=== PATIENT | female | born 1990 | race Caucasian/White ===

== ENCOUNTER → 2018-05-14 | Outpatient (CLI) | payer MEDICAID ==
[2016-03-11 15:52] VITALS: BMI 32.1
[~2018-05-14] MED LIST: DIPH0.5D12 IM; DOCU240C67 PO; FLU60SYR36 IM; IBUP800T37 PO; Lanolin TP; PREN-127 PO; [UNRECOGNIZED DRUG - CODE] PO; [UNRECOGNIZED DRUG - OTHER] PO
== END ==
LOC: LAB 09:26
PROVIDERS: ATTEND Student in an Organized Health Care Education/Training Program
DX: Z34.90 Encounter for supervision of normal pregnancy, unspecified, unspecified trimester (principal)
CPT/HCPCS: 36415; 82950; 85027

== ENCOUNTER → 2018-05-22 | Outpatient (CLI) | payer MEDICAID ==
[2016-03-11 15:52] VITALS: BMI 32.1
== END ==
LOC: LAB 07:43
PROVIDERS: ATTEND Student in an Organized Health Care Education/Training Program
DX: O99.810 Abnormal glucose complicating pregnancy (principal)
CPT/HCPCS: 36415; 82951; 82952

== ENCOUNTER → 2018-06-21 | Outpatient (CLI) | payer MEDICAID ==
[2016-03-11 15:52] VITALS: BMI 32.1
--- NOTE | 2018-06-21 12:46 | RADIOLOGY IMAGING REPORT ---
FACILITY: [facility] [place] PATIENT NAME: Samantha Stearns : 1990 MR: [id number] V: [id number] EXAM DATE: ORDERING PHYSICIAN: RAE JERNIGAN TECHNOLOGIST: Location: [facility] Patient: Samantha Stearns : 1990 Visit/Account:[id number] Date of Sevice: 06/21/2018 Limited OB ultrasound Indication: Size and dates Comparison: None available FINDINGS: Intrauterine gestations: one presentation: Variable heart rate: 139 bpm Amniotic fluid index: 15.1 cm Largest amniotic fluid pocket 5.8 cm Placenta: Fundal without previa Uterus: gravid, otherwise normal Maternal adnexa: Unremarkable Cervix: long and closed Gestational Parameters: BPD: 9.1 cm 36 weeks six days HC: 32.1 cm 36 weeks two days AC: 29.7 cm 33 weeks five days FL: 6.6 cm 33 weeks six days Average ultrasound age (AUA): 35 weeks two days NANETTE: 07/24/2018 Estimated weight (EFW): 2384 g EFW: 51st percentile Limited anatomic survey shows the 4 chamber heart, stomach, and kidneys to be unremarkable. IMPRESSION: 1. Single live intrauterine gestation with dates and measurements as above. Report Dictated By: Doc Andujar at 06/21/2018 12:39 PM Report E-Signed By: Doc Andujar at 06/21/2018 12:41 PM WSN:[id number]
== END ==
LOC: RAD 09:29
PROVIDERS: ATTEND Student in an Organized Health Care Education/Training Program
DX: Z34.92 Encounter for supervision of normal pregnancy, unspecified, second trimester (principal)

== ENCOUNTER → 2018-07-05 | Outpatient (CLI) | payer MEDICAID ==
[2016-03-11 15:52] VITALS: BMI 32.1
== END ==
LOC: LAB 08:46
PROVIDERS: ATTEND Advanced Practice Midwife
DX: Z34.93 Encounter for supervision of normal pregnancy, unspecified, third trimester (principal)
CPT/HCPCS: 87081

== ENCOUNTER → 2018-08-02 | Outpatient (CLI) | payer MEDICAID ==
[2016-03-11 15:52] VITALS: BMI 32.1
== END ==
LOC: LAB 10:23
PROVIDERS: ATTEND Obstetrics & Gynecology
DX: R10.11 Right upper quadrant pain (principal)
CPT/HCPCS: 82040; 82247; 82310; 82374; 82435; 82565; 82570; 82947; 83615; 84075; 84132; 84155; 84156; 84295; 84450; 84460; 84520; 84550; 85027

== ENCOUNTER 2018-08-10 19:01 | Inpatient (IN) | payer MEDICAID ==
[~2018-08-10] VITALS: Ht 170.2 cm; Wt 98.0 kg
[2018-08-10] MEDS ORDERED: OXYTOCIN 30 UNIT/D5LR 500 ML 500 ML IV PRN (19:12)
[2018-08-10] MEDS ORDERED: LR(*) 1000 ML BAG 1,000 ML IV PRN (19:12)
[2018-08-10] MEDS ORDERED: FAMOTIDINE(*) 20MG/50ML PREMIX 50 ML IVPB PRN (19:12)
[2018-08-10] MEDS ORDERED: fentaNYL CITR 100 MCG/2 ML AMP IVP PRN (19:15)
[2018-08-10] MEDS ORDERED: cefOXitin/DEX(*) 2GM/50ML PREM 50 ML IVPB PRN (19:15)
[2018-08-10] MEDS ORDERED: METOCLOPRAMIDE 10 MG/2 ML SDV IVP PRN (19:15)
[2018-08-10 19:23] VITALS: BP 133/77; Ht 170.2 cm; Wt 98.0 kg
[2018-08-10 20:18] LABS: PLATELET COUNT, AUTOMATED 185 K/uL (150-450)
[2018-08-10] MEDS ORDERED: NS(*) 0.9% 500 ML BAG 0 ML ONE (20:18)
--- NOTE | 2018-08-10 21:26 | History & Physical ---
History of Present Illness Age of Patient: 28 : 2 Para or TPAL: 1 EDC per LMP: Aug 02, 2018 EDC per U/S: Aug 02, 2018 Estimated Gestational Age: 41.1 Chief Complaint Pt is at 27yo @ 41 08/09 by LMP and first trimester US with an NANETTE of 08/02/19 admitted tonight for IOL for postdates with a plan for a cook catheter placement. She has been having occasional contractions, but nothing that has been to consistent. She feel like she have lost her mucus plug earlier today too. +FM, no LOF, some light spotting and inconsistent contractions. She denies GUZMAN, vision changes, RUQ or epigastric pain. History Patient's Blood Type: B Positive Rubella Status: Immune Group B Strep Screen: Negative Obstetrical History: Uncomplicated delivery of of male infant 71b 5oz Allergies: Coded Allergies: No Known Allergies (Verified Allergy, Unknown, 02/21/16) Family History: FH: hypertension FATHER FH: hypothyroidism MOTHER FH: lung cancer GRANDPARENT FH: thyroid condition Med Rec Home Meds Reported Medications Vits W-Ca,Fe,Fa(<1MG) ( VITAMINS) 1 Each Tablet, 1 EACH PO DAILY, TAB 04/28/18 Review of Systems Constitutional: No Fever Eyes: No Vision Change, No Loss of Vision Cardiovascular: No Chest Pain Respiratory: No Shortness of Breath Gastrointestinal: No Nausea, No Vomiting; Abdominal Pain (3/10 contraction pain) Genitourinary: No Dysuria Exam General Exam General Apperance: Alert/Awake/No Acute Distress Neuro: No Gross deficits Eyes: Normal Extraocular Movement & Vison, PERRLA ENT: Normal Cardiovascular: Regular Rate and Rhythm Respiratory: No Respiratory Distress, Clear to Auscultation Abdomen: Gravid - Non-Tender, RUQ Non-Tender : Normal Musculoskeletal: No Weakness/Pain Extremities: No Cyanosis,Clubbing or Edema Integumentary: Skin Intact without Lesions or Rash Psychological: Alert & Oriented X3, Appropriate Mood & Affect Vaginal Discharge/Fluid?: Bloody Show Cervical Dialation: 1.5 Cervical Effacement (%): 70 Cervical Consistency: Soft Cervical Position: Posterior Station: -2 Presentation: Vertex Uterine Contractions(Q min): 8 Uterine Contraction Strength: Moderate UC Resting Tone: Soft Fetus Feeling Movement?: Yes Estimated Weight(grams): 3500 Heart Tones: 125 Heart Tone Variabilty: Moderate FHT Accelerations: 15X15 FHT Decelerations: None FHT Category: I Medical Decision Making Data Points Result Diagram: 08/10/181999 Assessment and Plan TALENT CONSULTANT Plan: Routine Labor/Induct Care Problems: (1) Encounter for induction of labor Onset Date: ~ 08/10/2018 Status: Acute Assessment & Plan: CHARLES is a 28yo @ 41 08/09 by LMP and first trimester US with an NANETTE of 08/02/18 here today for induction of labor for PD . 1.Labor state: IOL for PD. Early labor, attempted to place cook cath and was unsuccessful. Plan for walking for 1 hour and then Cervidil if no cervical change. 2. well-being: Category I FHT: intermittent monitoring 3.Maternal well-being: VSS, normotensive, afebrile, membranes intact, BBOW 4.PNL: GBS neg, Type/Rh A+, rubella immune 5.Pain Management: plans for an unmedicated , comfortable now, tolerating contractions 6.Feed: Breast 7.PPBCM: not asked 8. c/b: * PD Re-evaluate in [address] Cervidil if no cervical change. IRENE MALONEY CNM Aug 10, 2018 21:26
[2018-08-10] MEDS ORDERED: DINOPROSTONE 10 MG INSERT PV ONE (22:40)
--- NOTE | 2018-08-10 23:29 | Labor Progress Note ---
Labor Subjective Progress Notes Subjective Pt is starting to feel more contraction discomfort. She is thinking that she wants to try the Cervidil verus the Cytotec because we can remove if needed. at bedside and very supportive. Feeling Movement?: Yes Vaginal Discharge/Fluid: Bloody Show Labor Pain: Moderate Neurological: No Headache Eyes: No Visual Disturbances Labor Objective Vaginal Discharge/Fluid?: Bloody Show Cervical Dialation: 1.5 Cervical Effacement (%): 70 Cervical Consistency: Soft Cervical Position: Mid Station: -1 Presentation: Vertex Uterine Contractions(Q min): 7 Uterine Contraction Strength: Moderate UC Resting Tone: Soft Fetus Estimated Weight(grams): 3500 Heart Tones: 125 Heart Tone Variabilty: Absent, Moderate FHT Accelerations: 15X15 FHT Decelerations: None FHT Category: I General Exam General Appearance: Alert/Awake/No Acute Distress Respiratory: No Respiratory Distress Abdomen: RUQ Non-Tender Psychological: Alert & Oriented X3, Appropriate Mood & Affect Other Result Diagram: 08/10/181999 Assessment and Plan SANITOR Plan: Routine Labor/Induct Care Problems: (1) Encounter for induction of labor Onset Date: ~ 08/10/2018 Status: Acute Assessment & Plan: CHARLES is a 28yo @ 41 08/09 by LMP and first trimester US with an NANETTE of 08/02/18 here today for induction of labor for PD . 1.Labor state: IOL for PD. Early labor, attempted to place cook cath and was unsuccessful. Cervidil placed at 2300, will need to be removed at 1100 on 08/11 or sooner if active labor or intolerance 2. well-being: Category I FHT: continuous monitoring X 2 hours post Cervidil and then intermittent monitoring 3.Maternal well-being: VSS, normotensive, afebrile, membranes intact. Encourage rest and hydration 4.PNL: GBS neg, Type/Rh A+, rubella immune 5.Pain Management: plans for an unmedicated , tolerating contractions, but not able to talk through them now. Able to rest between contractions 6.Feed: Breast 7.PPBCM: not asked 8. c/b: * PD Anticipate progression to active labor. Re-evaluate in 2-3 hours or PRN IRENE MALONEY CNM Aug 10, 2018 23:28
--- NOTE | 2018-08-11 03:50 | Labor Progress Note ---
Labor Subjective Progress Notes Subjective Pt is feeling much more uncomfortable now. Sitting on the ball with body over the bed and swaying and moaning during contractions. is very supportive counting during the contractions. Able to rest and talk between contractions. Feeling vaginal pressure with pain mostly felt in lower abdomen. Feeling Movement?: Yes Vaginal Discharge/Fluid: Bloody Show, Small Amount Labor Pain: Moderate Neurological: No Headache Eyes: No Visual Disturbances Labor Objective Vital Signs Vital Signs Date Time Temp Pulse Resp B/P (MAP) Pulse Ox O2 Delivery O2 Flow Rate FiO2 08/10/18 19:23 98.6 80 16 133/77 (95) 96 Room Air Vaginal Discharge/Fluid?: Bloody Show, Small Amount Cervical Position: Posterior Station: -1 Presentation: Vertex Uterine Contraction Strength: Moderate UC Resting Tone: Soft Fetus Estimated Weight(grams): 3500 Heart Tones: 140 FHT Accelerations: Present (audible with IA) FHT Decelerations: None (no audible decelerations) General Exam General Appearance: Alert/Awake/No Acute Distress ENT: Normal Psychological: Alert & Oriented X3, Appropriate Mood & Affect Other Result Diagram: 08/10/181999 Assessment and Plan Hospital Day: 2 ROOF FITTER Plan: Routine Labor/Induct Care Problems: (1) Encounter for induction of labor Onset Date: ~ 08/10/2018 Status: Acute Assessment & Plan: CHARLES is a 28yo @ 41 2/7 by LMP and first trimester US with an NANETTE of 08/02/18 admitted 08/10 @ 1900 for induction of labor for PD . 1. Labor state: IOL for PD. Active labor. Cervidil removed at 0330 for signs of active labor and adequate contraction pattern. Will monitor contraction pattern and consider AROM if needed to progress labor, R/B/A reviewed with pt and 2. well-being: Intermittent auscultation every 30 minutes for active labor for 1 minute before and after a contraction 3. Maternal well-being: VSS, normotensive, afebrile, membranes intact. Encourage rest and hydration 4. PNL: GBS neg, Type/Rh A+, rubella immune 5. Pain Management: plans for an unmedicated , tolerating contractions on the birthing ball. Able to rest and smile between contractions 6. Feed: Breast 7. PPBCM: not asked 8. c/b: * PD Anticipate and Re-evaluate in 2-3 hours or PRN IRENE MALONEY CNM Aug 11, 2018 03:50
--- NOTE | 2018-08-11 06:34 | Labor Progress Note ---
Labor Subjective Progress Notes Subjective Pt reports feeling more lower back pain with contractions but also in her lower abdomen. Moaning, swaying, and is massaging her lower back during contractions. +FM, no LOF or bloody show. Would prefer at this time to not be rechecked because it is so painful for her. Has been able to sleep between contractions. Labor Pain: Moderate Neurological: No Headache Eyes: No Visual Disturbances Labor Objective Vital Signs Vital Signs Date Time Temp Pulse Resp B/P (MAP) Pulse Ox O2 Delivery O2 Flow Rate FiO2 08/10/18 19:23 98.6 80 16 133/77 (95) 96 Room Air Uterine Contraction Strength: Strong UC Resting Tone: Soft Fetus Estimated Weight(grams): 3500 Heart Tones: 135 General Exam General Appearance: Alert/Awake/No Acute Distress (sleepy) Psychological: Alert & Oriented X3, Appropriate Mood & Affect Other Result Diagram: 08/10/181999 Assessment and Plan Hospital Day: 2 SQL SSIS DEVELOPER Plan: Routine Labor Care Problems: (1) Encounter for induction of labor Onset Date: ~ 08/10/2018 Status: Acute Assessment & Plan: CHARLES is a 28yo @ 41 2/7 by LMP and first trimester US with an NANETTE of 08/02/18 admitted 08/10 @ 1900 for induction of labor for PD . 1. Labor state: IOL for PD. Active labor. Cervidil removed at 0330 for signs of active labor and adequate contraction pattern. Will recheck pt cervix when she is ready, but for now good visual signs of labor progression. 2. well-being: Intermittent auscultation every 30 minutes for active labor for 1 minute before and after a contraction 3. Maternal well-being: VSS, normotensive, afebrile, membranes intact. Encourage rest and hydration. Received IVF bolus earlier. Encourage frequent use of bathroom 4. PNL: GBS neg, Type/Rh A+, rubella immune 5. Pain Management: coping well; using hydrotherapy, birthing ball, hands and knees with lower back massage, controlled breathing, sleeping between contractions, plans for an unmedicated 6. Feed: Breast 7. PPBCM: not asked 8. c/b: * PD Anticipate and Re-evaluate in 2-3 hours or PRN IRENE MALONEY CNM Aug 11, 2018 06:34
--- NOTE | 2018-08-11 12:09 | OB Delivery Note ---
Delivery Note Vaginal Delivery Type: Spont. Vaginal Delivery Delivery Date: Aug 11, 2018 Delivery Time: 10:41 Estimated Gestational Age(wks): 42 2/7 Delivery Anesthesia: Other (un medicated) Infant Sex: Male [place] Apgars: 1 Minute, 5 Minute Repair Needed: Laceration, Perineal, 2nd Degree Estimated Blood Loss: 150 Notes: KJ is 28yo G2 now P2 @ 41 2/7 by LMP and first trimester US with an NANETTE of 08/02/18 who was admitted to the family care unit at 1900 on 08/10 for IOL for PD. Pt was admitted to the family care unit @1900 not in labor. Cervical exam on admission was 1.5/70/-2. She had SROM on 08/11/17 at 1023 with large amount of clear fluid right before completely dilated and pushing began. Pt was GBS negative. FHR CAT 1 primarily throughout first stage. Pt utilized non- pharmacological methods for pain management. Cervidil was used as a ripening agent and no Pitocin augmentation was needed. Pt was completely dilated on 08/11/18 at 1034 and pt began pushing at that time with good maternal effort. At 1041 pt had a NSVB of live male . The head delivered spontaneously in the OA position and restituted BRIANDA with no nuchal co rd. The anterior shoulder was delivered a traumatically and the posterior shoulder followed. Body delivered easily. Face was wiped and then placed on the maternal abdomen. The infant was dried and stimulated and noted to have a spontaneous cry and spontaneous movement of all 4 extremities. Cord was clamped X 2 by CNM after pulsations ceased and cut by patient's spouse. Mother was in SF position. At 1054 the placenta and membranes delivered spontaneous and intact with a 3 vessel cord after gentle downward traction and maternal push. 30 units of Pitocin was placed in 500cc IV to firm the uterus and started immediately after placenta delivery. Upon inspection of the perineum a second degree midline perineal laceration was noted and repaired using 3.0 Vicryl under 1% lidocaine. Hemostasis observed. EBL 150, fundus firm with minimal bleeding. Mom and baby were left in stable condition. initiated with great success. "I personally examined the patient and there are no unintended foreign objects in the vagina. Amisha Fisher CNM was present throughout the entire delivery. Nautical Instrument Mechanic in Attendence: AMISHA Escamilla CNM Aug 11, 2018 12:09
--- NOTE | 2018-08-11 12:11 | Labor Progress Note ---
Labor Subjective Progress Notes Subjective Feeling a lot of rectal pressure and wanting to push so desires at cervical check. Feeling Movement?: Yes Vaginal Discharge/Fluid: Bloody Show, Moderate Amount Labor Pain: Moderate Neurological: No Headache Eyes: No Visual Disturbances Labor Objective Vital Signs Vital Signs Date Time Temp Pulse Resp B/P (MAP) Pulse Ox O2 Delivery O2 Flow Rate FiO2 08/10/18 19:23 98.6 80 16 133/77 (95) 96 Room Air Vaginal Discharge/Fluid?: Bloody Show Cervical Dialation: 8 Cervical Effacement (%): 100 Cervical Consistency: Soft Station: 0 Presentation: Vertex Uterine Contractions(Q min): 2 Uterine Contraction Strength: Strong UC Resting Tone: Soft Fetus Estimated Weight(grams): 3500 Heart Tones: 140 (Intemittent monitoring, no decelerations,+ accelerations, moderate variability) Heart Tone Variabilty: Moderate FHT Accelerations: 15X15 FHT Decelerations: None FHT Category: I General Exam General Appearance: Alert/Awake/No Acute Distress Cardiovascular: Normal Rhythm & Peripheral Pulses Respiratory: No Respiratory Distress Abdomen: Gravid - Non-Tender, RUQ Non-Tender Other Result Diagram: 08/10/181999 Assessment and Plan AUCTIONEER TOBACCO Assessment: Stable AUCTIONEER TOBACCO Plan: Routine Labor Care Problems: (1) Encounter for induction of labor Onset Date: ~ 08/10/2018 Status: Acute Assessment & Plan: CHARLES is a 28yo @ 41 2/7 by LMP and first trimester US with an NANETTE of 08/02/18 admitted 08/10 @ 1900 for induction of labor for PD . 1. Labor state: IOL for PD. Active labor, progressing toward transition. Adequate contraction pattern with good cervical change in 2 hours 2. well-being: Continuous monitoring per pt request, CAT 1 FHT 3. Maternal well-being: VSS, normotensive, afebrile, membranes intact. Encourage frequent use of bathroom and hydration. 4. PNL: GBS neg, Type/Rh A+, rubella immune 5. Pain Management: coping well; birthing ball on hands and knees with lower back massage, controlled breathing and moaning 6. Feed: Breast 7. PPBCM: not asked 8. c/b: * PD Anticipate and Re-evaluate in 2-3 hours or PRN IRENE MALONEY M CN Aug 11, 2018 09:43
[2018-08-11] MEDS ORDERED: GLYCERIN/WITCH HAZEL LEAF 1 PK TP PRN (12:15)
[2018-08-11] MEDS ORDERED: APAP/HYDROCODONE 325/5 TAB PO PRN (12:15)
[2018-08-11] MEDS ORDERED: LANOLIN OINT 7 GM TUBE TP PRN (12:15)
[2018-08-11] MEDS ORDERED: ACETAMINOPHEN 325 MG TAB PO PRN (12:15)
[2018-08-11] MEDS ORDERED: HYDROCORTISONE 2.5% CR 30GM TB PR PRN (12:15)
[2018-08-11] MEDS ORDERED: MAGNESIUM HYDROXIDE* 30ML UDCP PO PRN (12:15)
[2018-08-11] MEDS ORDERED: BENZOCAINE 20% 60 ML BTL TP PRN (12:15)
[2018-08-11] MEDS: LIDOCAINE 1% LOCAL 300 MG/30ML INJ PRN ×2 (13:00→13:25)
[2018-08-11] MEDS ORDERED: IBUPROFEN 800 MG TAB PO SCH (14:00)
[2018-08-11 17:00] VITALS: BP 125/70
[2018-08-11 19:45] VITALS: BP 113/71
[2018-08-11] MEDS: IBUPROFEN 800 MG TAB PO SCH (21:37)
[2018-08-11] MEDS: DOCUSATE CALCIUM 240 MG CAP PO SCH (21:37)
[2018-08-11 23:20] VITALS: BP 124/76
[2018-08-12 03:00] VITALS: BP 130/80
[2018-08-12] MEDS: IBUPROFEN 800 MG TAB PO SCH ×2 (06:10→13:13)
[2018-08-12 08:30] VITALS: BP 123/74
[2018-08-12] MEDS: DOCUSATE CALCIUM 240 MG CAP PO SCH (09:25)
--- NOTE | 2018-08-12 11:52 | OB/GYN Discharge Summary ---
Discharge Summary Reason for Hosp/Final Diag: (1) Encounter for induction of labor Onset Date: ~ 08/10/2018 Status: Resolved (2) (normal spontaneous vaginal delivery) Status: Resolved (3) Second degree perineal laceration during delivery, delivered Onset Date: ~ 08/11/2018 Status: Acute Hospital Course & Plan: Return in 2 weeks for evaluation. Nothing in the vagina for 6 weeks. Monitor for s/s of infection or dehiscence. (4) care and examination Onset Date: ~ 08/11/2018 Status: Acute Hospital Course & Plan: Admission Diagnoses: IUP at 41w1d, Labor state: Not in labor, admitted for IOL for PD Reason for Hospitalization: IOL for PD, normal vaginal delivery of male infant with a second degree laceration Hospital Course: KJ is 28yo G2 now P2 @ 41 2/7 by LMP and first trimester US with an NANETTE of 08/02/18 who was admitted to the family care unit at 1900 on 08/10 for IOL for PD. Pt was admitted to the family care unit @1900 not in labor. Cervical exam on admission was 1.5/70/-2. She had SROM on 08/11/17 at 1023 with large amount of clear fluid right before completely dilated and pushing began. Pt was GBS negative. FHR CAT 1 primarily throughout first stage. Pt utilized non- pharmacological methods for pain management. Cervidil was used as a ripening agent and no Pitocin augmentation was needed. Delivery Information: Uncomplicated of male on 08/11/18 at 10:41. Apgars 8,9. Second degree laceration sustained and repaired without difficulty. Estimated blood loss: 150cc Episiotomy: none Laceration: Second degree repaired Pain Management: non-pharmacological Subjective: Pt is feeling really great today. is going well and is not having an perineal pain. She does have some abdominal pain when nursing, but understands that this is normal and a good thing. She is taking Motrin with good effect and will plan to continue this for a few days at home. Her bleeding is minimal to none. She has not had a BM, but is passing gas. Denies UTI and pre E symptoms. She feels very satisfied with her experience. Exam: A+Ox3, happy and smiling Vitals: Normotensive and afebrile Breasts: Soft and non tender, nipples everted and +colostrum Abdomen: Soft and non-tender, F@ the U Perineum: no swelling, healing well with good approximation, no redness Lochia: minimal Extremities: BLE non tender, -homans sign, no redness Disposition: Patient discharged to home in medically stable condition. No Known Allergies Follow-up Appointment: See me in 2 weeks for a mood and laceration check Activity/Restrictions: Pelvic rest; nothing in vagina for six weeks. Return Precautions: Patient instructed to call the clinic or return to hospital for fever > 101 degree F; chills; severe nausea or vomiting; inability to tolerate anything by mouth for > 24 hours; increasingly severe abdominal/pelvic pain; foul smelling vaginal discharge; vaginal bleeding > 1 pad per hour for > 2 hours; separation, drainage, or redness of incision or laceration site. Reviewed depression and pre-eclampsia s/s and when to seek care. Lates Vital Signs Vital Signs Date Time Temp Pulse Resp B/P (MAP) Pulse Ox O2 Delivery O2 Flow Rate FiO2 08/12/18 03:00 97.7 84 18 130/80 (97) 96 08/10/18 19:23 Room Air Weight (Pounds): 216 Result Diagram: 08/10/181999 Condition: Improved Discharge: Home Home Meds Reported Medications Vits W-Ca,Fe,Fa(<1MG) ( VITAMINS) 1 Each Tablet, 1 EACH PO DAILY, TAB 04/28/18 Follow up Referrals: FARM EQUIPMENT SERVICE TECHNICIAN - In Two Weeks @ [facility] with IRENE MALONEY CNM Discharge Diet: As Tolerates, Resume Prior Admit Diet, Increase Fluid Intake Discharge Activity: As Tolerates, Pelvic Rest Special Instructions: Watch for signs and symptoms of infection IRENE MALONEY CNM Aug 12, 2018 09:03
== END 2018-08-12 14:00 | disposition home or self-care (01) | DRG 807 ==
LOC: OB 19:01
PROVIDERS: ADMIT Student in an Organized Health Care Education/Training Program; ATTEND Student in an Organized Health Care Education/Training Program
PROC: 3E0P7VZ Introduction of Hormone into Female Reproductive, Via Natural or Artificial Opening (ICD-10-PCS; 2018-08-10)
PROC: 10E0XZZ Delivery of Products of Conception, External Approach (ICD-10-PCS; principal; 2018-08-11)
PROC: 0KQM0ZZ Repair Perineum Muscle, Open Approach (ICD-10-PCS; 2018-08-11)
DX: O48.0 Post-term pregnancy (principal); Z37.0 Single live birth; O70.1 Second degree perineal laceration during delivery; Z3A.41 41 weeks gestation of pregnancy
CPT/HCPCS: 85025; 86703; 86850; 86900; 86901; C1726; J2001